=== PATIENT | female | born 1935 | race Hispanic/Latino ===

== ENCOUNTER 2017-03-15 15:21 | Inpatient (IN) | payer MEDICARE, OTHER ==
[2017-03-15] MEDS: Sodium Chloride 0.9% 1,000 ML IV SCH (17:15)
[2017-03-15 17:18] LABS: ADD MANUAL DIFF? NO
[2017-03-15 17:21] LABS: EOS % 0.5 % (1.5-5.0); GRAN # 2.22 (1.4-6.5); GRAN % 50.4 % (50.0-68.0); HEMATOCRIT 35.8 % (36.0-48.0); LYMPH # 1.5 (1.2-3.4); LYMPH % 33.6 % (22.0-35.0); MEAN CELL VOLUME 91.1 fL (80.0-105.0); MEAN CORPUSCULAR HEMOGLOBIN 30.5 pg (25.0-35.0); MEAN CORPUSCULAR HGB CONC 33.5 g/dl (31.0-37.0); MONO # 0.7 (0.1-0.6); MONO % 15.5 % (1.0-6.0); PLATELET COUNT 147 10^3/uL (120.0-450.0); RED CELL DISTRIBUTION WIDTH 13.1 % (11.5-14.5); WHITE BLOOD COUNT 4.4 10^3/ul (4.5-11.0)
[2017-03-15 17:31] LABS: ALKALINE PHOSPHATASE 93 U/L (38-133); ALT/SGPT 15 U/L (7-56); AST/SGOT 23 U/L (15-39); BILIRUBIN,TOTAL 0.8 mg/dL (0.2-1.3); BLOOD UREA NITROGEN 8 mg/dL (7-21); CALCIUM 9.8 mg/dL (8.4-10.5); CARBON DIOXIDE 38 mmol/L (21-33); CHLORIDE 90 mmol/L (98-107); GFR AFRICAN-AMERICAN > 60; GLUCOSE,RANDOM 101 mg/dL (70-110); MAGNESIUM 1.6 mg/dL (1.7-2.2); PHOSPHOROUS 2.9 mg/dL (2.5-4.5); TOTAL PROTEIN 7.7 g/dL (5.8-8.3)
[2017-03-15 17:33] LABS: SODIUM 138 mmol/L (132-148)
[2017-03-15 17:35] LABS: POTASSIUM 2.4 mmol/L (3.6-5.0)
--- NOTE | 2017-03-15 17:35 | ED PDOC ---
Arrival/HPI - General Chief Complaint: Altered Mental Status Time Seen by Provider: 03/15/17 15:46 Historian: Family - History of Present Illness Narrative History of Present Illness (Text): 03/15/17 15:35 A 81 year old female, whose past medical history includes Alzheimer, dementia impulse control disorder hypertension, hyperlipidemia, and COPD, was brought in by family and presents to the emergency department complaining of weakness. Patient's family reports that patient has not been eating and is progressively getting weaker and is unable to get up from bed. Patient's impulse control disorder symptoms have improved due to Haldol intake. Family would like consider placing patient in half-way. Denies of homicidal ideation, sn, and any other complaints. Symptom Onset: Gradual Activities at Onset: Rest, Light Context: Home Past Medical History - Provider Review Nursing Documentation Reviewed: Yes - Infectious Disease Hx of Infectious Diseases: None - Cardiac Hx Hypertension: Yes - Pulmonary Hx Respiratory Disorders: No - Neurological Hx Dementia: Yes - Hematological/Oncological Hx Blood Disorders: No - Integumentary Hx Dermatological Disorder: No - Musculoskeletal/Rheumatological Hx Falls: No - Gastrointestinal Hx Gastrointestinal Disorders: No - Genitourinary/Gynecological Hx Genitourinary Disorders: No - Psychiatric Hx Psychophysiologic Disorder: No Hx Substance Use: No - Surgical History Other/Comment: gallbladder, hysterectomy - Anesthesia Hx Anesthesia: No Hx Anesthesia Reactions: No Hx Malignant Hyperthermia: No Family/Social History - Physician Review Nursing Documentation Reviewed: Yes Family/Social History: No Known Family HX Smoking Status: Former Smoker Hx Alcohol Use: No Hx Substance Use: No Allergies/Home Meds Allergies/Adverse Reactions: Allergies No Known Allergies Allergy (Verified 03/15/17 15:44) Home Medications: Home Meds Medication Instructions Recorded Confirmed Atorvastatin [Lipitor] 10 mg PO DIN 10/14/16 03/15/17 Furosemide [Lasix] 20 mg PO DAILY 10/14/16 03/15/17 Memantine HCl [Namenda Xr] 14 mg PO DAILY 10/14/16 03/15/17 Rivastigmine 9.5 mg/24 hr [Exelon 1 ea TD DAILY 10/14/16 03/15/17 9.5 mg/24 hr Patch] Review of Systems - Physician Review All systems were reviewed & negative as marked: Yes - Review of Systems Constitutional: Other (weakness due to poor food intake) Psychiatric: absent: Suicidal Ideation, Other (homicidal ideation) Physical Exam Vital Signs Reviewed: Yes Vital Signs Temp Pulse Resp BP Pulse Ox 03/15/17 15:44 98.5 F 88 18 109/58 L 98 03/15/17 15:42 98.5 F 73 16 139/94 H 97 Temperature: Afebrile Blood Pressure: Normal Pulse: Regular Respiratory Rate: Normal Appearance: Positive for: Well-Appearing Pain Distress: None Mental Status: Positive for: Alert and Oriented X 3 - Systems Exam Head: Present: Atraumatic, Normocephalic Pupils: Present: PERRL Extroacular Muscles: Present: EOMI Conjunctiva: Present: Normal Mouth: Present: Moist Mucous Membranes Neck: Present: Normal Range of Motion Respiratory/Chest: Present: Clear to Auscultation, Good Air Exchange. No: Respiratory Distress, Accessory Muscle Use Cardiovascular: Present: Regular Rate and Rhythm, Normal S1, S2. No: Murmurs Abdomen: Present: Normal Bowel Sounds. No: Tenderness, Distention, Peritoneal Signs Back: Present: Normal Inspection Upper Extremity: Present: Normal Inspection. No: Cyanosis, Edema Lower Extremity: Present: Normal Inspection. No: Edema Neurological: Present: GCS=15, CN II-XII Intact, Speech Normal Skin: Present: Warm, Dry, Normal Color. No: Rashes Psychiatric: Present: Alert, Oriented x 3, Normal Insight, Normal Concentration Medical Decision Making ED Course and Treatment: 03/15/17 17:40 Impression: 81 year old female with weakness due to poor food intake. Normal physical exam. Differential Diagnosis included but are not limited to: Alzheimer vs. Dementia Plan: -- EKG -- Labs -- Mag-Ox -- K-Dur -- PO potassium -- IV fluids -- Urinalysis -- Reassess and disposition Prior Visits: Notes and results from previous visits were reviewed. Patient was last seen in the emergency department on 10/14/2016 reported agitated at home. Patient was admitted. Progress Notes: 03/15/2017 17:44 EKG: Ordered, reviewed, and independently interpreted the EKG. Rate : 77 BPM Rhythm : NSR Interpretation : PAC, U waves, no ST elevation. Comparison : No change in EKG since 10/14/2016. 03/15/2017 17:[address] Naranjo, covering for Dr. Brooks who will accept the patient. Potassium replaced with PO and IV potassium Magnesium replaced with PO Magnesium. Signed out to Propellant Charge Loader as well. 03/15/17 18:07 Repeat EKG: NSR at 66 bpm with Sinus arrythmia and U waves. No change from previous. - Critical Care Critical Care Minutes: 30 minutes Narrative Critical Care (Text): 03/15/17 17:49 Potassium level is 2.4 - Lab Interpretations Lab Results: 03/15/17 17:11 03/15/17 17:11 Lab Results 03/15/17 17:11: Sodium 138, Potassium 2.4 L* D, Chloride 90 L, Carbon Dioxide 38 H, Anion Gap 12, BUN 8, Creatinine 0.8, Est GFR ( Amer) > 60, Est GFR (Non-Af Amer) > 60, Random Glucose 101, Calcium 9.8, Phosphorus 2.9, Magnesium 1.6 L, Total Bilirubin 0.8, AST 23, ALT 15, Alkaline Phosphatase 93, Total Protein 7.7, Albumin 3.8, Globulin 3.9, Albumin/Globulin Ratio 1.0 L 03/15/17 17:11: PT 11.4, INR 1.06, APTT 27.5 03/15/17 17:11: WBC 4.4 L, RBC 3.93, Hgb 12.0, Hct 35.8 L, MCV 91.1, MCH 30.5, MCHC 33.5, RDW 13.1, Plt Count 147, MPV 12.0 H, Gran % 50.4, Lymph % (Auto) 33.6 , [place] % (Auto) 15.5 H, Eos % (Auto) 0.5 L, Baso % (Auto) 0.0, Gran # 2.22, Lymph # 1.5, [place] # 0.7 H, Eos # 0.0, Baso # 0.00 - RAD Interpretation Radiology Orders: 03/15/17 16:00 CHEST PORTABLE [RAD] Stat - Medication Orders Current Medication Orders: Sodium Chloride (Sodium Chloride 0.9%) 1,000 mls @ 100 mls/hr IV .Q10H EDDI Last Admin: 03/15/17 17:15 Dose: 100 mls/hr Potassium Chloride (Potassium Chloride 10 Meq/100 Ml) 10 meq in 100 mls @ 100 mls/hr IVPB ONCE ONE Stop: 03/15/17 18:39 Discontinued Medications Magnesium Oxide (Mag-Ox) 400 mg PO STAT STA Stop: 03/15/17 17:44 Potassium Chloride (K-Dur 20 Meq Er Tab) 40 meq PO STAT STA Stop: 03/15/17 17:41 - Scribe Statement Deena Mcmillan Provider Scribe Attestation: All medical record entries made by the Scribe were at my direction and personally dictated by me. I have reviewed the chart and agree that the record accurately reflects my personal performance of the history, physical exam, medical decision making, and the department course for this patient. I have also personally directed, reviewed, and agree with the discharge instructions and disposition. Disposition/Present on Arrival - Present on Arrival Any Indicators Present on Arrival: No History of DVT/PE: No History of Uncontrolled Diabetes: No Urinary Catheter: No History of Decub. Ulcer: No History Surgical Site Infection Following: None - Disposition Have Diagnosis and Disposition been Completed?: Yes Diagnosis: Hypokalemia, Alzheimer's dementia, Failure to thrive Disposition: HOSPITALIZED Disposition Time: 18:09 Patient Plan: Admission Condition: GUARDED Forms: [facility] [facility] (Hungarian)
--- NOTE | 2017-03-15 17:37 | RAD ---
HISTORY: failure to thrive COMPARISON: Chest x-ray performed 10/14/16 TECHNIQUE: Chest, one view. FINDINGS: LUNGS: Hyperinflation may be seen in the setting of COPD. Increased lucencies especially within the bilateral upper lung clark compatible with underlying emphysema. Biapical pleural thickening. No focal consolidation. Please note that chest x-ray has limited sensitivity for the detection of pulmonary masses. PLEURA: No significant pleural effusion identified. No definite pneumothorax . CARDIOVASCULAR: Heart size appears within normal limits. Atherosclerotic calcifications of the aorta. OSSEOUS STRUCTURES: Osseous demineralization. Degenerative changes. VISUALIZED UPPER ABDOMEN: Unremarkable. OTHER FINDINGS: None. IMPRESSION: Findings compatible with COPD/emphysema. Correlate clinically.
[2017-03-15] MEDS ORDERED: Potassium Chloride 20 mEq ER Tab PO STA (17:40)
[2017-03-15] MEDS ORDERED: Magnesium Oxide 400 mg Tab UD PO STA (17:43)
[2017-03-15 17:49] LABS: INR 1.06 (0.93-1.08); PARTIAL THROMBOPLASTIN TIME 27.5 Seconds (23.7-30.8)
[2017-03-15] MEDS ORDERED: Potassium Chloride 40 mEq/30 ml LIQ UD PO STA ×2 (18:15→18:40)
--- NOTE | 2017-03-15 20:18 | CARD ---
APPROVED REPORT EKG Measurement Heart [id number] <Conclusion> Sinus rhythm with premature atrial complexes with aberrant conduction Nonspecific ST abnormality Abnormal ECG
--- NOTE | 2017-03-15 20:49 | CP.PCM.HP ---
<Roger Tellez - Last Filed: 03/15/17 21:02> History of Present Illness - History of Present Illness History of Present Illness: Ms. Gutierrez is an 81 y/o F with a PMHx specifically significant for Dementia who presented to the ED with her daughter at bedside, who c/o progressively decreasing cognitive function over the past few days. Pt's daughter states that she has become increasingly less able to take care of herself and that the patient's and daughter must constantly help her with ADL's. As of late , the patient has become more confused and has been falling. Pt's daughter denies injuries from the falls, including head injury, but believes that patient needs inpatient evaluation for her declining condition. Patient herself denies any complaints, including headache, dizziness, loss of sensation , fevers, chills, chest pain, palpitations, sob, n/v/d/constipation, or any other complaints. PSurgHx: Hysterectomy, Cholecystectomy PMHx: Dementia, HTN, HLD All: NKDA SocHx: Smoked 3 ppd for 15-20 years, quit many years ago; denies etoh, illicits FHx: Could not elicit Meds: Namenda, Ativan, Duonebs, Exelon, Potassium, Lasix, Lipitor, Phenergan, Protonix Present on Admission - Present on Admission Any Indicators Present on Admission: No Review of Systems - Hematologic/Lymphatic Additional comments: ROS: Constitutional: pt denies fever, chills, generalized weakness ENT: pt denies dysphagia, otalgia, hearing deficit, rhinorrhea Eyes: pt denies sudden loss of vision, diplopia, blurred vision MSK: pt denies muscle stiffness, joint pain, extremity cramping Cardio: pt denies sob, heart murmur, cp Pulm: pt denies cough, hemoptysis, wheeze GI: pt denies loss of appetite, abdominal pain, constipation, melena, n/v/d : pt denies burning on urination, urinary frequency, hematuria, urinary urgency Neuro: pt denies paresis, paresthesia, dizziness, jones, numbness, tingling Derm: pt denies skin changes, lesions, nail changes Endo: pt denies intolerance to heat/cold, diaphoresis, night sweats, polydipsia Psych: +See HPI Past Patient History - Infectious Disease Hx of Infectious Diseases: None - Past Social History Smoking Status: Former Smoker - CARDIAC Hx Hypertension: Yes - PULMONARY Hx Respiratory Disorders: No - NEUROLOGICAL Hx Dementia: Yes - HEMATOLOGICAL/ONCOLOGICAL Hx Blood Disorders: No - INTEGUMENTARY Hx Dermatological Problems: No - MUSCULOSKELETAL/RHEUMATOLOGICAL Hx Falls: No - GASTROINTESTINAL Hx Gastrointestinal Disorders: No - GENITOURINARY/GYNECOLOGICAL Hx Genitourinary Disorders: No - PSYCHIATRIC Hx Psychophysiologic Disorder: No Hx Substance Use: No - SURGICAL HISTORY Other/Comment: gallbladder, hysterectomy - ANESTHESIA Hx Anesthesia: No Hx Anesthesia Reactions: No Hx Malignant Hyperthermia: No Meds Allergies/Adverse Reactions: Allergies Allergy/AdvReac Type Severity Reaction Status Date / Time No Known Allergies Allergy Verified 03/15/17 15:44 Physical Exam - Additional Findings Additional findings: Phys Exam: VS as below Constitutional: alert, oriented to person; nad Head and Neck: neck supple, no jvd, trachea midline, carotid midline, no cervical/head mass Eyes: aimee, nonicteric sclera, eom intact ENT: auditory acuity grossly intact, throat not congested, no nasal deformity Cardio: rrr, no m/r/g, no carotid bruit, nml s1, s2 Pulm: no accessory muscle use, equal nml breath sounds bilaterally, ctab Abd: s/nt/nd, nbs x 4 q, no palpable masses Derm: no rashes, no ulcers, no lesions Extr: no edema, no cyanosis, no calf tenderness, no lesions, no varicosities Neuro: +does not follow simple commands; is verbal but does not respond appropriately to questions; cn II-XII grossly intact, ue and le 5/5 muscle strength bilaterally, no los ue, le bilaterally and core. Results - Vital Signs Recent Vital Signs: Last Vital Signs Temp 98.5 F 03/15/17 15:44 Pulse 92 H 03/15/17 20:04 Resp 16 03/15/17 20:04 BP 156/81 H 03/15/17 19:43 Pulse Ox 99 03/15/17 20:04 - Labs Result Diagrams: 03/15/17 17:11 03/15/17 17:11 Assessment & Plan - Assessment and Plan (Free Text) Assessment: Assessment: Ms. Gutierrez is an 81 y/o F with a PMHx specifically significant for Dementia who presented to the ED with her daughter at bedside, who c/o progressively decreasing cognitive function over the past few days. Plan: 1.) Dementia - Social work on c/s - Continue home meds: Haldol, Memantine, Rivastigmine - Urine culture/UA: to r/o medical causes of deteriorating state 2.) Hypokalemia - Pt arrived with 2.4 K+ - P.O. and I.V. potassium given. Will continue to monitor Chemistry 3.) Hypomagnesemia - Pt arrived with 1.6 Mg+ - Mg Oxide given. Checking Mg/Phos next AM 4.) Hx/O HTN - Hold home Lasix 2/2 hypokalemia and low BP. - Give Hydralazine 5.) Hx/O HLD - Continue home Lipitor 6.) DVT/GI PPHXS - scd/protonix <Mykel Naranjo - Last Filed: 03/17/17 19:31> Results - Vital Signs Recent Vital Signs: Last Vital Signs Temp 98.9 F 03/17/17 18:00 Pulse 56 L 03/17/17 18:00 Resp 19 03/17/17 18:00 BP 134/62 03/17/17 18:00 Pulse Ox 94 L 03/17/17 18:00 - Labs Result Diagrams: 03/17/17 09:30 03/17/17 11:00 Labs: Laboratory Results - last 24 hr 03/17/17 03/17/17 09:30 11:00 WBC 3.6 L RBC 3.57 Hgb 10.7 L Hct 33.6 L MCV 94.1 MCH 30.0 MCHC 31.8 RDW 13.5 Plt Count 140 MPV 12.3 H Gran % 50.1 Lymph % (Auto) 37.7 H [place] % (Auto) 11.1 H Eos % (Auto) 1.1 L Baso % (Auto) 0.0 Gran # 1.81 Lymph # 1.4 [place] # 0.4 Eos # 0.0 Baso # 0.00 Sodium 141 Potassium 3.8 Chloride 108 H Carbon Dioxide 24 Anion Gap 13 BUN 5 L Creatinine 0.7 Est GFR ( Amer) > 60 Est GFR (Non-Af Amer) > 60 Random Glucose 95 Calcium 9.7 Phosphorus 2.7 Magnesium 1.6 L Total Bilirubin 0.6 AST 20 ALT 15 Alkaline Phosphatase 78 Total Protein 6.3 Albumin 3.0 Globulin 3.3 Albumin/Globulin Ratio 0.9 L Attending/Attestation - Attestation I have personally seen and examined this patient.: Yes I have fully participated in the care of the patient.: Yes I have reviewed all pertinent clinical information: Yes Notes (Text): 03/17/17 19:31 Medical record note made by the resident after discussion with my direction and input after the patient was personally seen and examined by me. I have reviewed the chart and agree that the record accurately reflects by personal performance of the history, physical exam, data review, and medical decision-making, in the course for the patient. I have also personally directed the plan of care.
[2017-03-15 20:59] VITALS: BMI 17.6
[2017-03-16] MEDS: Sodium Chloride 0.9% 1,000 ML IV SCH ×3 (03:14→23:15)
[2017-03-16] MEDS ORDERED: Potassium Chloride 40 mEq/30 ml LIQ UD PO STA (04:47)
[2017-03-16] MEDS ORDERED: Potassium Chloride 40 mEq/30 ml LIQ UD PO ONE (06:40)
[2017-03-16 07:22] LABS: ADD MANUAL DIFF? NO
[2017-03-16 07:30] LABS: EOS % 0.7 % (1.5-5.0); GRAN % 41.5 % (50.0-68.0); HEMATOCRIT 34.7 % (36.0-48.0); LYMPH # 1.8 (1.2-3.4); LYMPH % 43.2 % (22.0-35.0); MEAN CELL VOLUME 91.8 fL (80.0-105.0); MEAN CORPUSCULAR HEMOGLOBIN 30.2 pg (25.0-35.0); MEAN CORPUSCULAR HGB CONC 32.9 g/dl (31.0-37.0); MEAN PLATELET VOLUME 12.2 fl (7.0-11.0); MONO # 0.6 (0.1-0.6); MONO % 14.6 % (1.0-6.0); PLATELET COUNT 157 10^3/uL (120.0-450.0); RED CELL DISTRIBUTION WIDTH 13.2 % (11.5-14.5); WHITE BLOOD COUNT 4.1 10^3/ul (4.5-11.0)
[2017-03-16 08:06] LABS: ALB/GLOB RATIO 0.9 (1.1-1.8); ALKALINE PHOSPHATASE 70 U/L (38-133); ALT/SGPT 15 U/L (7-56); AST/SGOT 19 U/L (15-39); BILIRUBIN,TOTAL 0.7 mg/dL (0.2-1.3); BLOOD UREA NITROGEN 5 mg/dL (7-21); CALCIUM 9.2 mg/dL (8.4-10.5); CARBON DIOXIDE 31 mmol/L (21-33); CHLORIDE 101 mmol/L (98-107); GFR AFRICAN-AMERICAN > 60; GLUCOSE,RANDOM 90 mg/dL (70-110); MAGNESIUM 1.7 mg/dL (1.7-2.2); POTASSIUM 3.8 mmol/L (3.6-5.0); SODIUM 140 mmol/L (132-148); TOTAL PROTEIN 6.5 g/dL (5.8-8.3)
[2017-03-16] MEDS: MEMANTINE HCL 14 MG PO SCH (09:50)
[2017-03-16] MEDS: Potassium & Sodium Phosphate PO SCH ×2 (10:32→17:04)
--- NOTE | 2017-03-16 11:10 | CP.PCM.CON ---
<Kalya Cano - Last Filed: 03/16/17 13:15> History of Present Illness - History of Present Illness History of Present Illness: PGY-2 Neurology consult note for Dr Nuñez. Reason for consult: worsening dementia Patient is an 81 y/o with pmh of copd, dementia, htn, hld brought in by family 2nd to worsening in cognitive decline, inability to perform ADLS, frequent falling and worsening of confusion.On presentation, patient had electrolytes imbalance and O2 sat of 94% on room air. Patient is not sure why she's in the hospital. Patient's was at the bed side, and states patient was brought in because patient is frail and is not able to complete sentences. Unable to obtain 12 point ROS due to mental status. Review of Systems - Review of Systems Systems not reviewed;Unavailable: Altered Mental Status Past Patient History - Infectious Disease Hx of Infectious Diseases: None - Past Social History Smoking Status: Former Smoker Home Situation {Lives}: With Family - CARDIAC Hx Hypertension: Yes - PULMONARY Hx Respiratory Disorders: No - NEUROLOGICAL Hx Dementia: Yes - HEENT Hx HEENT Problems: No Hx Blind: No Hx Cataracts: No Hx Deafness: No Hx Difficulty Chewing: No Hx Epistaxis: No Hx Glaucoma: No Hx Macular Degeneration: No - RENAL Hx Chronic Kidney Disease: No Hx Dialysis: No Hx Kidney Stones: No Hx Neurogenic Bladder: No Hx Pyelonephritis: No Hx Renal (Kidney) Cancer: No Hx Renal Failure: No - ENDOCRINE/METABOLIC Hx Endocrine Disorders: No Hx Adrenal Cancer: No Hx Diabetes Insipidus: No Hx Diabetes Mellitus Type 1: No Hx Diabetes Mellitus Type 2: No Hx Hyperthyroidism: No Hx Hypothyroidism: No Hx Systemic Lupus Erythematosus: No - HEMATOLOGICAL/ONCOLOGICAL Hx Blood Disorders: No - INTEGUMENTARY Hx Dermatological Problems: No - MUSCULOSKELETAL/RHEUMATOLOGICAL Hx Falls: No - GASTROINTESTINAL Hx Gastrointestinal Disorders: No - GENITOURINARY/GYNECOLOGICAL Hx Genitourinary Disorders: No - PSYCHIATRIC Hx Psychophysiologic Disorder: No Hx Substance Use: No - SURGICAL HISTORY Other/Comment: gallbladder, hysterectomy - ANESTHESIA Hx Anesthesia: No Hx Anesthesia Reactions: No Hx Malignant Hyperthermia: No Meds Allergies/Adverse Reactions: Allergies Allergy/AdvReac Type Severity Reaction Status Date / Time No Known Allergies Allergy Verified 03/15/17 15:44 - Medications Medications: Current Medications Atorvastatin Calcium (Lipitor) 10 mg PO DIN EDDI Haloperidol (Haldol) 0.25 mg PO AMHS EDDI PRN Reason: Protocol Last Admin: 03/15/17 22:28 Dose: 0.25 mg Hydralazine HCl (Apresoline) 10 mg IVP Q6 PRN PRN Reason: Systolic Blood Pressure Sodium Chloride (Sodium Chloride 0.9%) 1,000 mls @ 100 mls/hr IV .Q10H [facility] Last Admin: 03/16/17 03:14 Dose: 100 mls/hr Non-Formulary Medication (Memantine Hcl [Namenda Xr]) 14 mg PO DAILY [facility] Pantoprazole Sodium (Protonix Inj) 40 mg IVP DAILY [facility] Last Admin: 03/16/17 09:50 Dose: 40 mg Potassium Phos/Sodium Phos (Neutra-Phos) 2 pkt PO BID [facility] Rivastigmine (Exelon 9.5 Mg/24 Hr Patch) 1 patch TD DAILY [facility] Last Admin: 03/16/17 09:49 Dose: 1 patch Physical Exam - Constitutional Appears: No Acute Distress, Confused, Cachectic, Chronically Ill - Head Exam Head Exam: ATRAUMATIC, NORMAL INSPECTION, NORMOCEPHALIC - Eye Exam Eye Exam: EOMI, Normal appearance, PERRL. absent: Scleral icterus Pupil Exam: NORMAL ACCOMODATION, PERRL - ENT Exam ENT Exam: Mucous Membranes Dry - Neck Exam Neck exam: Positive for: Full Rom, Normal Inspection - Respiratory Exam Respiratory Exam: Clear to Auscultation Bilateral, NORMAL BREATHING PATTERN. absent: Rales, Rhonchi, Wheezes, Respiratory Distress, Stridor - Cardiovascular Exam Cardiovascular Exam: REGULAR RHYTHM, +S1, +S2 - GI/Abdominal Exam GI & Abdominal Exam: Normal Bowel Sounds, Soft. absent: Distended, Tenderness - Extremities Exam Extremities exam: Positive for: normal inspection. Negative for: pedal edema - Neurological Exam Neurological exam: CN II-XII Intact Additional comments: Frail looking lady, in no acute distress Patient with wondering thoughts, unable to focus. Mini mental exam 30, patient unable to answer or do anything. Motor strength flexion and extension diminished diffusely with diffuse muscle atrophy. No focal neuralgic deficit noted. Patient is unable to follow commands for detailed neuro exam. Reflexes +2 through out, negative babinski. Sensation intact. Gait deferred. - Psychiatric Exam Psychiatric exam: Flat Affect - Skin Skin Exam: Normal Color Results - Vital Signs Recent Vital Signs: Last Vital Signs Temp 98 F 03/16/17 06:00 Pulse 68 03/16/17 06:00 Resp 20 03/16/17 06:00 BP 122/69 03/16/17 06:00 Pulse Ox 94 L 03/16/17 06:00 - Labs Result Diagrams: 03/16/17 07:00 03/16/17 07:00 Labs: Laboratory Results - last 24 hr 03/16/17 03/16/17 03/16/17 02:55 07:00 07:00 WBC 4.1 L RBC 3.78 Hgb 11.4 L Hct 34.7 L MCV 91.8 MCH 30.2 MCHC 32.9 RDW 13.2 Plt Count 157 MPV 12.2 H Gran % 41.5 L Lymph % (Auto) 43.2 H [place] % (Auto) 14.6 H Eos % (Auto) 0.7 L Baso % (Auto) 0.0 Gran # 1.70 Lymph # 1.8 [place] # 0.6 Eos # 0.0 Baso # 0.00 Sodium 140 Potassium 3.1 L 3.8 Chloride 101 Carbon Dioxide 31 Anion Gap 12 BUN 5 L Creatinine 0.7 Est GFR ( Amer) > 60 Est GFR (Non-Af Amer) > 60 Random Glucose 90 Calcium 9.2 Phosphorus 2.0 L Magnesium 1.7 Total Bilirubin 0.7 AST 19 ALT 15 Alkaline Phosphatase 70 Total Protein 6.5 Albumin 3.1 Globulin 3.4 Albumin/Globulin Ratio 0.9 L Assessment & Plan - Assessment and Plan (Free Text) Assessment: Patient is an 81 y/o with pmh of copd, dementia, htn, hld brought in by family 2nd to worsening in cognitive decline. CT head w/o contrast:Possible interval chronic lacunar left basal ganglia. Remaining examination is stable in the interval including diffuse cerebral atrophy chronic microangiopathy. Impression: dementia with behavioral disturbance. Plan: - Monitor and correct electrolytes - c/w memantine, haldol and rivastigmine - Consider seroquel 2.5 mg bid if haldol doesn't help with agitation. - Can consider MRI to evaluate the interval lacunar infarct - Avoid night time interruption - Avoid sedatives, and opioid - Consider home health aid to assist with ADLs and self care - Thank you for consulting Dr Nuñez. Patient seen, examined, and case discussed with Dr Nuñez. - Date & Time Date: 03/16/17 Time: 13:15 <David Nuñez - Last Filed: 03/16/17 14:03> Meds - Medications Medications: Current Medications Atorvastatin Calcium (Lipitor) 10 mg PO DIN EDDI Haloperidol (Haldol) 0.25 mg PO AMHS EDDI PRN Reason: Protocol Last Admin: 03/16/17 09:50 Dose: Not Given Hydralazine HCl (Apresoline) 10 mg IVP Q6 PRN PRN Reason: Systolic Blood Pressure Sodium Chloride (Sodium Chloride 0.9%) 1,000 mls @ 100 mls/hr IV .Q10H [facility] Last Admin: 03/16/17 13:15 Dose: 100 mls/hr Non-Formulary Medication (Memantine Hcl [Namenda Xr]) 14 mg PO DAILY [facility] Last Admin: 03/16/17 09:50 Dose: Not Given Pantoprazole Sodium (Protonix Inj) 40 mg IVP DAILY [facility] Last Admin: 03/16/17 09:50 Dose: 40 mg Potassium Phos/Sodium Phos (Neutra-Phos) 2 pkt PO BID [facility] Last Admin: 03/16/17 10:32 Dose: Not Given Rivastigmine (Exelon 9.5 Mg/24 Hr Patch) 1 patch TD DAILY [facility] Last Admin: 03/16/17 09:49 Dose: 1 patch Results - Vital Signs Recent Vital Signs: Last Vital Signs Temp 97.1 F L 03/16/17 11:32 Pulse 76 03/16/17 11:32 Resp 16 03/16/17 11:32 BP 155/67 H 03/16/17 11:32 Pulse Ox 94 L 03/16/17 06:00 - Labs Result Diagrams: 03/16/17 07:00 03/16/17 07:00 Labs: Laboratory Results - last 24 hr 03/16/17 03/16/17 03/16/17 02:55 07:00 07:00 WBC 4.1 L RBC 3.78 Hgb 11.4 L Hct 34.7 L MCV 91.8 MCH 30.2 MCHC 32.9 RDW 13.2 Plt Count 157 MPV 12.2 H Gran % 41.5 L Lymph % (Auto) 43.2 H [place] % (Auto) 14.6 H Eos % (Auto) 0.7 L Baso % (Auto) 0.0 Gran # 1.70 Lymph # 1.8 [place] # 0.6 Eos # 0.0 Baso # 0.00 Sodium 140 Potassium 3.1 L 3.8 Chloride 101 Carbon Dioxide 31 Anion Gap 12 BUN 5 L Creatinine 0.7 Est GFR ( Amer) > 60 Est GFR (Non-Af Amer) > 60 Random Glucose 90 Calcium 9.2 Phosphorus 2.0 L Magnesium 1.7 Total Bilirubin 0.7 AST 19 ALT 15 Alkaline Phosphatase 70 Total Protein 6.5 Albumin 3.1 Globulin 3.4 Albumin/Globulin Ratio 0.9 L TSH 3rd Generation 03/16/17 12:44 WBC RBC Hgb Hct MCV MCH MCHC RDW Plt Count MPV Gran % Lymph % (Auto) [place] % (Auto) Eos % (Auto) Baso % (Auto) Gran # Lymph # [place] # Eos # Baso # Sodium Potassium Chloride Carbon Dioxide Anion Gap BUN Creatinine Est GFR ( Amer) Est GFR (Non-Af Amer) Random Glucose Calcium Phosphorus Magnesium Total Bilirubin AST ALT Alkaline Phosphatase Total Protein Albumin Globulin Albumin/Globulin Ratio TSH 3rd Generation 1.69 Attending/Attestation - Attestation I have personally seen and examined this patient.: Yes I have fully participated in the care of the patient.: Yes I have reviewed all pertinent clinical information: Yes
--- NOTE | 2017-03-16 11:16 | CARD ---
APPROVED REPORT EKG Measurement Heart [id number] <Conclusion> Normal sinus rhythm with sinus arrhythmia ST abnormality, possible digitalis effect Abnormal ECG
--- NOTE | 2017-03-16 11:47 | CT ---
PROCEDURE: CT HEAD WITHOUT CONTRAST. HISTORY: Falls COMPARISON: Head CT without contrast 10/17/2016. TECHNIQUE: Axial computed tomography images were obtained through the head/brain without intravenous contrast. Radiation dose: Total exam DLP = 746 mGy-cm. This CT exam was performed using one or more of the following dose reduction techniques: Automated exposure control, adjustment of the mA and/or kV according to patient size, and/or use of iterative reconstruction technique. FINDINGS: HEMORRHAGE: No intracranial hemorrhage. BRAIN: Small chronic lacune is suspect in the left basal ganglia with stable diffuse cerebral atrophy and chronic microangiopathy again identified. No definite acute intracranial findings by standard CT criteria. VENTRICLES: Unremarkable. No hydrocephalus. CALVARIUM: Unremarkable. PARANASAL SINUSES: Unremarkable as visualized. No significant inflammatory changes. MASTOID AIR CELLS: Unremarkable as visualized. No inflammatory changes. OTHER FINDINGS: None. IMPRESSION: Possible interval chronic lacune left basal ganglia. Remaining examination is stable in the interval including diffuse cerebral atrophy chronic microangiopathy as discussed above. Yes
--- NOTE | 2017-03-16 17:08 | CP.PCM.PN ---
Addendum entered and electronically signed by Lazarus Grayson DO 03/22/17 15:53: Patient was seen and examined and case was discussed at length with Dr. Seth. Patient's dementia acutely worsening. Pending work up. Lazarus Grayson D.O. PGY-2 Original Note: <PETER SETH - Last Filed: 03/16/17 17:04> Subjective - Date & Time of Evaluation Date of Evaluation: 03/16/17 Time of Evaluation: 06:45 - Subjective Subjective: Peter Seth DO PGY1 - Internal Medicine Progress Note - [place]ous[place]/Adaniel Service Patient seen and examined at bedside. Patient was admitted overnight for acutely worsening dementia, frequent fall. Today, she appears comfortable, but is very confused, unable answer many simple questions or follow complex commands. She denies CP, SOB, abdominal pain, N/V/D/C. Objective - Vital Signs/Intake and Output Vital Signs (last 24 hours): Temp Pulse Resp BP Pulse Ox 97 F L 86 16 149/75 96 03/16/17 16:40 03/16/17 16:40 03/16/17 16:40 03/16/17 16:40 03/16/17 16:40 Intake and Output: 03/16/17 03/16/17 06:59 18:59 Intake Total 1540 0 Balance 1540 0 - Medications Medications: Current Medications Atorvastatin Calcium (Lipitor) 10 mg PO DIN [facility] Haloperidol (Haldol) 0.25 mg PO [facility]HS EDDI PRN Reason: Protocol Last Admin: 03/16/17 09:50 Dose: Not Given Hydralazine HCl (Apresoline) 10 mg IVP Q6 PRN PRN Reason: Systolic Blood Pressure Sodium Chloride (Sodium Chloride 0.9%) 1,000 mls @ 100 mls/hr IV .Q10H [facility] Last Admin: 03/16/17 13:15 Dose: 100 mls/hr Non-Formulary Medication (Memantine Hcl [Namenda Xr]) 14 mg PO DAILY [facility] Last Admin: 03/16/17 09:50 Dose: Not Given Pantoprazole Sodium (Protonix Inj) 40 mg IVP DAILY [facility] Last Admin: 03/16/17 09:50 Dose: 40 mg Potassium Phos/Sodium Phos (Neutra-Phos) 2 pkt PO BID [facility] Last Admin: 03/16/17 10:32 Dose: Not Given Rivastigmine (Exelon 9.5 Mg/24 Hr Patch) 1 patch TD DAILY [facility] Last Admin: 03/16/17 09:49 Dose: 1 patch - Labs Labs: 03/16/17 07:00 03/16/17 07:00 PT 11.4 Seconds (9.9-11.8) 03/15/17 17:11 INR 1.06 (0.93-1.08) 03/15/17 17:11 APTT 27.5 Seconds (23.7-30.8) 03/15/17 17:11 - Constitutional Appears: Non-toxic, No Acute Distress, Confused - Head Exam Head Exam: ATRAUMATIC, NORMOCEPHALIC - Eye Exam Eye Exam: EOMI, Normal appearance, PERRL - ENT Exam ENT Exam: Mucous Membranes Moist - Neck Exam Neck Exam: Normal Inspection - Respiratory Exam Respiratory Exam: Clear to Ausculation Bilateral. absent: Rales, Rhonchi, Wheezes - Cardiovascular Exam Cardiovascular Exam: RRR, +S1, +S2 - GI/Abdominal Exam GI & Abdominal Exam: Soft, Normal Bowel Sounds. absent: Tenderness - Extremities Exam Extremities Exam: Normal Inspection. absent: Calf Tenderness, Pedal Edema - Neurological Exam Neurological Exam: Alert, Awake Neuro motor strength exam: Left Upper Extremity: 5, Right Upper Extremity: 5, Left Lower Extremity: 5, Right Lower Extremity: 5 Additional comments: Oriented x1, but would not say her last name, or name the city, state, or country she is in. Later, came in to the room again, she was tearful. - Psychiatric Exam Psychiatric exam: Flat Affect - Skin Skin Exam: Dry, Intact Assessment and Plan - Assessment and Plan (Free Text) Assessment: 81 y/o F with a PMHx of Dementia, HTN, HLD, COPD who presented to the ED with her daughter who was c/o progressively decreasing cognitive function over the past few days, decreased strength and appetite, and decreasing ability to conduct her ADLs. Plan: 1. Dementia - History of Alzheimer dementia with impulse control disorder, but acutely worsening. Daughter admits to falls, but denies any head trauma - Ordered head CT to r/o acute intracranial pathology, which showed possible chronic interval lacunar infarct in R basal ganglia - Order brain MRI to elucidate details of lacunar infarct - Order TSH, blood culture, and FTA-ABS to rule out other causes of worsening dementia - Continue home meds: Haldol, Memantine, Rivastigmine - Straight cath UA and urine culture pending - Consult neurology ([place]) - [facility] ([place]) - Social work consulted for group home placement 2. Hypokalemia - improved - Pt arrived with potassium 2.4, repleted with PO and IV, now 3.8 - Continue to monitor, recheck CMP in AM 3. Hypomagnesemia - Improved - Pt arrived with magnesium 1.6, repleted, now 1.7 - Continue to monitor 4. Hypophosphatemia - Today, phosphate is 2.0, down from 2.9 yesterday - Replete with Nutraphos 5. Hx/O HTN - Hold home Lasix 2/2 hypokalemia and low BP. - Give Hydralazine PRN 6. Hx/O HLD - Continue home Lipitor DVT/GI PPx - scd/protonix <Lazarus Grayson - Last Filed: 03/22/17 15:54> <Abimael Brooks - Last Filed: 04/27/17 11:34> Objective - Vital Signs/Intake and Output Vital Signs (last 24 hours): Temp Pulse Resp BP Pulse Ox 98.7 F 78 20 143/70 97 03/22/17 16:50 03/22/17 16:50 03/22/17 16:50 03/22/17 16:50 03/22/17 06:00 - Labs Labs: 03/22/17 10:35 03/22/17 11:00 PT 11.4 Seconds (9.9-11.8) 03/15/17 17:11 INR 1.06 (0.93-1.08) 03/15/17 17:11 APTT 27.5 Seconds (23.7-30.8) 03/15/17 17:11 Attending/Attestation - Attestation I have personally seen and examined this patient.: Yes I have fully participated in the care of the patient.: Yes I have reviewed all pertinent clinical information, including history, physical exam and plan: Yes Notes (Text): 04/27/17 11:34 Medical record note made by the resident after discussion with my direction and input after the patient was personally seen by me. I have reviewed the chart and agree that the record accurately reflects my personal performance of the history, physical, decision making, and plan for the patient.
--- NOTE | 2017-03-16 17:46 | CP.PCM.PCO ---
Physician Communication Note - Physician Communication Note Physician Communication Note: alzhimer dementia with behavorial disturbance.
[2017-03-17] MEDS: Sodium Chloride 0.9% 1,000 ML IV SCH ×2 (09:10→19:00)
[2017-03-17] MEDS: Potassium & Sodium Phosphate PO SCH ×2 (09:12→17:34)
[2017-03-17] MEDS: MEMANTINE HCL 14 MG PO SCH (09:16)
[2017-03-17 10:12] LABS: ADD MANUAL DIFF? NO
[2017-03-17 10:18] LABS: EOS % 1.1 % (1.5-5.0); GRAN # 1.81 (1.4-6.5); GRAN % 50.1 % (50.0-68.0); HEMATOCRIT 33.6 % (36.0-48.0); LYMPH # 1.4 (1.2-3.4); LYMPH % 37.7 % (22.0-35.0); MEAN CELL VOLUME 94.1 fL (80.0-105.0); MEAN CORPUSCULAR HGB CONC 31.8 g/dl (31.0-37.0); MEAN PLATELET VOLUME 12.3 fl (7.0-11.0); MONO # 0.4 (0.1-0.6); MONO % 11.1 % (1.0-6.0); PLATELET COUNT 140 10^3/uL (120.0-450.0); RED CELL DISTRIBUTION WIDTH 13.5 % (11.5-14.5); WHITE BLOOD COUNT 3.6 10^3/ul (4.5-11.0)
--- NOTE | 2017-03-17 11:05 | MRI ---
PROCEDURE: MRI BRAIN WITHOUT CONTRAST HISTORY: Interval change on head CT, ?basal ganglia lacune COMPARISON: Comparison made with plain film CT scan brain dated 03/16/2017 TECHNIQUE: Multiplanar, multisequence MR images of the brain were obtained without intravenous contrast enhancement. Note the examination is limited due to motion artifact. FINDINGS: HEMORRHAGE: No acute parenchymal, subarachnoid or extra-axial hemorrhage. No evidence of hemosiderin deposition identified on gradient echo weighted sequence DWI: No evidence of an acute or early subacute infarction seen on diffusion imaging. . BRAIN PARENCHYMA: Seen to better advantage are moderate to significant diffuse/confluent chronic white matter ischemic changes extending peripherally into the deep and subcortical white matter both cerebral hemispheres. There appears to be more discrete chronic subcortical infarct in the left frontal region as well. . Moderate to significant generalized volume loss. VENTRICLES: No obstructive hydrocephalus. CRANIUM: No obvious calvarial abnormalities are identified ORBITS: Changes of bilateral cataract surgery again noted PARANASAL SINUSES/MASTOIDS: Clear VASCULAR SYSTEM: Visualized major vascular flow voids at skull base are patent. 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 OTHER FINDINGS: None. IMPRESSION: Limited motion degraded study. No evidence of acute intracranial hemorrhage or infarct. 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 Moderate to significant generalized volume loss
[2017-03-17 11:25] LABS: ALB/GLOB RATIO 0.9 (1.1-1.8); ALKALINE PHOSPHATASE 78 U/L (38-133); ALT/SGPT 15 U/L (7-56); AST/SGOT 20 U/L (15-39); BILIRUBIN,TOTAL 0.6 mg/dL (0.2-1.3); BLOOD UREA NITROGEN 5 mg/dL (7-21); CALCIUM 9.7 mg/dL (8.4-10.5); CARBON DIOXIDE 24 mmol/L (21-33); CHLORIDE 108 mmol/L (98-107); GFR AFRICAN-AMERICAN > 60; GLUCOSE,RANDOM 95 mg/dL (70-110); MAGNESIUM 1.6 mg/dL (1.7-2.2); PHOSPHOROUS 2.7 mg/dL (2.5-4.5); POTASSIUM 3.8 mmol/L (3.6-5.0); SODIUM 141 mmol/L (132-148); TOTAL PROTEIN 6.3 g/dL (5.8-8.3)
--- NOTE | 2017-03-18 05:24 | CON ---
HISTORY OF PRESENT ILLNESS: The patient is an 81-year-old female with a history of advanced dementia. The patient was brought in to the hospital secondary to worsening of cognitive abilities and inability to perform ADLs. The patient also was more confused, forgetful, and dementia was getting worse. Psych consult was called for evaluation of behavioral disturbances and confusion. This signwriter was familiar with this patient from the previous consultation services on the medical side. This signwriter attempted to speak to the patient, but the patient was deeply sleeping, was not able to wake the patient up. Collaterals were obtained from the nursing staff. As per nursing staff report, the patient has episodes of confusion, restless behavior, majority of the time this was at about 2 p.m, 4 p.m. Besides that, there is no aggression or agitation, but confusion, restless behavior. This signwriter reviewed the vital signs. Vital signs seems to be stable. Temperature is 97.5, pulse is 59, blood pressure 117/56, respirations 18, and oxygen saturation 96. PAST PSYCHIATRIC HISTORY: This signwriter had evaluated the patient in 09/2016. The patient had advanced dementia. In the past, the patient was on haloperidol 0.25 mg twice a day, which was initiated by *------*since patient was improving on that medication. LABS: Reviewed. MENTAL STATUS EXAMINATION: This signwriter was not able to evaluate her mental status because the patient was deeply sleeping. IMPRESSION: The patient has advanced dementia with behavioral disturbances, multiple medical issues. Please see medical team's note for more details and information. The patient also was seen by neurology team*------* Dr. Nuñez. Patient also has some electrolyte imbalance. Patient had MRI. PLAN: Continue current management. This signwriter increased her dose of haloperidol to 0.25 mg 3 times a day. Collaterals were obtained from the nursing staff. We will follow up and advise accordingly. Thank you very much for letting me to participate in care of your patient. Moraima Barker MD
[2017-03-18] MEDS: Sodium Chloride 0.9% 1,000 ML IV SCH ×2 (05:42→16:02)
--- NOTE | 2017-03-18 07:06 | CP.PCM.PN ---
Subjective - Date & Time of Evaluation Date of Evaluation: 03/17/17 Time of Evaluation: 06:45 - Subjective Subjective: Peter Seth DO PGY1 - Internal Medicine Progress Note - Cecilia/Marcella Service Patient seen and examined at bedside. No acute events reported overnight. Today , she appears comfortable, but she remains very confused, unable answer many simple questions or follow complex commands. Had swallow eval yesterday, on regular diet now. She denies CP, SOB, abdominal pain, N/V/D/C, but ROS is limited by her mental status. Objective - Vital Signs/Intake and Output Vital Signs (last 24 hours): Temp Pulse Resp BP Pulse Ox 98.7 F 60 20 126/71 98 03/18/17 06:00 03/18/17 06:00 03/18/17 06:00 03/18/17 06:00 03/18/17 06:00 Intake and Output: 03/18/17 03/18/17 06:59 18:59 Intake Total 1440 Output Total 0 Balance 1440 - Medications Medications: Current Medications Atorvastatin Calcium (Lipitor) 10 mg PO DIN [facility] Last Admin: 03/17/17 17:34 Dose: 10 mg Haloperidol (Haldol) 0.25 mg PO [facility] PRN Reason: Protocol Last Admin: 03/17/17 21:49 Dose: 0.25 mg Haloperidol (Haldol) 0.25 mg PO 1600 [facility] PRN Reason: Protocol Hydralazine HCl (Apresoline) 10 mg IVP Q6 PRN PRN Reason: Systolic Blood Pressure Sodium Chloride (Sodium Chloride 0.9%) 1,000 mls @ 100 mls/hr IV .Q10H [facility] Last Admin: 03/18/17 05:42 Dose: 100 mls/hr Non-Formulary Medication (Memantine Hcl [Namenda Xr]) 14 mg PO DAILY [facility] Last Admin: 03/17/17 09:16 Dose: Not Given Pantoprazole Sodium (Protonix Inj) 40 mg IVP DAILY [facility] Last Admin: 03/17/17 09:12 Dose: 40 mg Potassium Phos/Sodium Phos (Neutra-Phos) 2 pkt PO BID [facility] Last Admin: 03/17/17 17:34 Dose: 2 pkt Rivastigmine (Exelon 9.5 Mg/24 Hr Patch) 1 patch TD DAILY [facility] Last Admin: 03/17/17 09:13 Dose: 1 patch - Labs Labs: 03/17/17 09:30 03/17/17 11:00 PT 11.4 Seconds (9.9-11.8) 03/15/17 17:11 INR 1.06 (0.93-1.08) 03/15/17 17:11 APTT 27.5 Seconds (23.7-30.8) 03/15/17 17:11 - Constitutional Appears: Non-toxic, No Acute Distress, Confused - Head Exam Head Exam: ATRAUMATIC, NORMOCEPHALIC - Eye Exam Eye Exam: EOMI, Normal appearance, PERRL - ENT Exam ENT Exam: Mucous Membranes Moist - Neck Exam Neck Exam: Normal Inspection - Respiratory Exam Respiratory Exam: Clear to Ausculation Bilateral. absent: Rales, Rhonchi, Wheezes - Cardiovascular Exam Cardiovascular Exam: RRR, +S1, +S2 - GI/Abdominal Exam GI & Abdominal Exam: Soft, Normal Bowel Sounds. absent: Tenderness - Extremities Exam Extremities Exam: Normal Inspection. absent: Calf Tenderness, Pedal Edema - Back Exam Back Exam: NORMAL INSPECTION - Neurological Exam Neurological Exam: Alert, Awake Additional comments: Oriented x1, hesitates when giving her last name. Has difficulty following simple commands, often cannot identify common objects (pen, glasses, etc). - Psychiatric Exam Psychiatric exam: Flat Affect, Normal Mood - Skin Skin Exam: Dry, Intact Assessment and Plan - Assessment and Plan (Free Text) Assessment: 81 y/o F with a PMHx of Dementia, HTN, HLD, COPD who presented to the ED with her daughter who was c/o progressively decreasing cognitive function over the past few days, decreased strength and appetite, and decreasing ability to conduct her ADLs. Plan: 1. Dementia - History of Alzheimer dementia with impulse control disorder, but acutely worsening. Daughter admits to falls, but denies any head trauma - Head CT reviewed; significant for possible chronic interval lacunar infarct in R basal ganglia - Brain MRI significant for "moderate to significant chronic white matter ischemic changes with more discrete chronic left frontal lobe subcortical infarct" and "moderate to significant generalized volume loss" but the exam was limited due to motion artifact. - TSH normal. Blood culture, and FTA-ABS pending - Continue home meds: Haldol, Memantine, Rivastigmine - Straight cath UA and urine culture pending - Consult neurology ([place]), all recs appreciated - [facility] ([place]), all recs appreciated - Social work consulted for care home placement 2. Hypokalemia - improved - Pt arrived with potassium 2.4, repleted with PO and IV, stable at 3.8 - Continue to monitor, recheck CMP in AM 3. Hypomagnesemia - Pt arrived with magnesium 1.6, repleted yesterday, improved to 1.7, but decreased again to 1.7 - Continue to monitor 4. Hypophosphatemia - improved - Today, phosphate is 2.7, up from 2.0 yesterday - Hold Nutraphos, recheck in AM 5. Hx/O HTN - Hold home Lasix 2/2 hypokalemia and low BP. - Give Hydralazine PRN 6. Hx/O HLD - Continue home Lipitor DVT/GI PPx - scd/protonix Patient seen and reviewed with attending Dr. Naranjo
[2017-03-18] MEDS ORDERED: Magnesium Sulfate 2 GM in Sodium Chloride 0.9% 100 ML IVPB ONE (07:11)
[2017-03-18 07:49] LABS: ADD MANUAL DIFF? NO
[2017-03-18 07:58] LABS: EOS % 0.5 % (1.5-5.0); GRAN # 2.01 (1.4-6.5); GRAN % 47.2 % (50.0-68.0); HEMATOCRIT 33.1 % (36.0-48.0); LYMPH # 1.7 (1.2-3.4); LYMPH % 39.2 % (22.0-35.0); MEAN CORPUSCULAR HEMOGLOBIN 30.3 pg (25.0-35.0); MEAN CORPUSCULAR HGB CONC 32.6 g/dl (31.0-37.0); MEAN PLATELET VOLUME 11.8 fl (7.0-11.0); MONO # 0.6 (0.1-0.6); MONO % 13.1 % (1.0-6.0); PLATELET COUNT 123 10^3/uL (120.0-450.0); RED CELL DISTRIBUTION WIDTH 13.4 % (11.5-14.5); WHITE BLOOD COUNT 4.3 10^3/ul (4.5-11.0)
[2017-03-18 08:13] LABS: ALKALINE PHOSPHATASE 70 U/L (38-133); ALT/SGPT 15 U/L (7-56); AST/SGOT 19 U/L (15-39); BILIRUBIN,TOTAL 0.6 mg/dL (0.2-1.3); BLOOD UREA NITROGEN 6 mg/dL (7-21); CALCIUM 9.2 mg/dL (8.4-10.5); CARBON DIOXIDE 25 mmol/L (21-33); CHLORIDE 107 mmol/L (98-107); GFR AFRICAN-AMERICAN > 60; GLUCOSE,RANDOM 88 mg/dL (70-110); MAGNESIUM 1.6 mg/dL (1.7-2.2); PHOSPHOROUS 2.7 mg/dL (2.5-4.5); POTASSIUM 3.7 mmol/L (3.6-5.0); SODIUM 142 mmol/L (132-148)
[2017-03-18] MEDS: MEMANTINE HCL 14 MG PO SCH (10:53)
--- NOTE | 2017-03-18 13:49 | CP.PCM.PN ---
<PETER SETH - Last Filed: 03/18/17 13:46> Subjective - Date & Time of Evaluation Date of Evaluation: 03/18/17 Time of Evaluation: 06:45 - Subjective Subjective: Peter Seth DO PGY1 - Internal Medicine Progress Note - Cecilia/Marcella Service Patient seen and examined at bedside. No acute events reported overnight. Today , she has no particular complaints, and appears comfortable, but she remains very confused, unable answer many simple questions or follow complex commands. She denies CP, SOB, abdominal pain, N/V/D/C, but ROS is limited by her mental status. Objective - Vital Signs/Intake and Output Vital Signs (last 24 hours): Temp Pulse Resp BP Pulse Ox 98.4 F 59 L 18 127/70 97 03/18/17 12:20 03/18/17 12:20 03/18/17 12:20 03/18/17 12:20 03/18/17 09:00 Intake and Output: 03/18/17 03/18/17 06:59 18:59 Intake Total 1440 Output Total 0 Balance 1440 - Medications Medications: Current Medications Atorvastatin Calcium (Lipitor) 10 mg PO DIN [facility] Last Admin: 03/17/17 17:34 Dose: 10 mg Haloperidol (Haldol) 0.25 mg PO [facility] PRN Reason: Protocol Last Admin: 03/18/17 10:57 Dose: 0.25 mg Haloperidol (Haldol) 0.25 mg PO 1600 [facility] PRN Reason: Protocol Hydralazine HCl (Apresoline) 10 mg IVP Q6 PRN PRN Reason: Systolic Blood Pressure Sodium Chloride (Sodium Chloride 0.9%) 1,000 mls @ 100 mls/hr IV .Q10H [facility] Last Admin: 03/18/17 05:42 Dose: 100 mls/hr Non-Formulary Medication (Memantine Hcl [Namenda Xr]) 14 mg PO DAILY [facility] Last Admin: 03/18/17 10:53 Dose: Not Given Pantoprazole Sodium (Protonix Inj) 40 mg IVP DAILY [facility] Last Admin: 03/18/17 10:57 Dose: 40 mg Potassium Phos/Sodium Phos (Neutra-Phos) 2 pkt PO BID [facility] Last Admin: 03/17/17 17:34 Dose: 2 pkt Rivastigmine (Exelon 9.5 Mg/24 Hr Patch) 1 patch TD DAILY [facility] Last Admin: 03/18/17 10:59 Dose: 1 patch - Labs Labs: 03/18/17 07:48 03/18/17 07:48 PT 11.4 Seconds (9.9-11.8) 03/15/17 17:11 INR 1.06 (0.93-1.08) 03/15/17 17:11 APTT 27.5 Seconds (23.7-30.8) 03/15/17 17:11 - Constitutional Appears: Non-toxic, No Acute Distress, Confused - Eye Exam Eye Exam: EOMI, Normal appearance, PERRL - ENT Exam ENT Exam: Mucous Membranes Moist - Neck Exam Neck Exam: Normal Inspection. absent: Lymphadenopathy, Meningismus, Thyromegaly - Respiratory Exam Respiratory Exam: Clear to Ausculation Bilateral. absent: Rales, Rhonchi, Wheezes - Cardiovascular Exam Cardiovascular Exam: RRR, +S1, +S2 - GI/Abdominal Exam GI & Abdominal Exam: Soft, Normal Bowel Sounds. absent: Tenderness - Extremities Exam Extremities Exam: absent: Calf Tenderness, Pedal Edema - Back Exam Back Exam: NORMAL INSPECTION Additional comments: No rash, sacral decubiti, skin breakdown. Patient is incontinent and is wearing a diaper. Has mild erythema on buttocks, cream/talc over the area. - Neurological Exam Neurological Exam: Alert, Awake Additional comments: Oriented x1, much more conversational that in prior exams. Hesitates when giving her last name. Has difficulty following simple commands, often cannot identify common objects (pen, glasses, etc). - Psychiatric Exam Psychiatric exam: Flat Affect, Normal Mood Assessment and Plan - Assessment and Plan (Free Text) Assessment: 81 y/o F with a PMHx of Dementia, HTN, HLD, COPD who presented to the ED with her daughter who was c/o progressively decreasing cognitive function over the past few days, decreased strength and appetite, and decreasing ability to conduct her ADLs. Plan: 1. Dementia - History of Alzheimer dementia with impulse control disorder, but acutely worsening. Daughter admits to falls, but denies any head trauma - Head CT reviewed; Brain MRI reviewed. - TSH normal. FTA-ABS pending - Blood culture no growth after 48 hrs - Continue home meds: Haldol, increased to TID, Memantine, Rivastigmine - Straight cath done yesterday, urine culture pending. UA not processed, will require a new sample because lab disposed of yesterday's sample. - Consult neurology ([place]), all recs appreciated - [facility] ([place]), all recs appreciated - Thorough exam of the back and skin shows no skin breakdown or ulceration; r/o possible sources of infection causing worsening dementia - Social work consulted for prison placement 2. Hypokalemia - resolved - Pt arrived with potassium 2.4, repleted, now stable - Continue to monitor, recheck CMP in AM 3. Hypomagnesemia - Pt arrived with magnesium 1.6, repleted but dropped again. - Replete with 2mg MgSO4 - Continue to monitor 4. Hypophosphatemia - resolved - Today, phosphate is 2.7, stable 5. Hx/O HTN - Hold home Lasix 2/2 hypokalemia and low BP. - Give Hydralazine PRN 6. Hx/O HLD - Continue home Lipitor DVT/GI PPx - scd/protonix Patient seen and reviewed with attending Dr. Wade <Hugh Wade - Last Filed: 03/18/17 16:07> Objective - Vital Signs/Intake and Output Vital Signs (last 24 hours): Temp Pulse Resp BP Pulse Ox 98.4 F 77 18 127/70 97 03/18/17 12:20 03/18/17 14:00 03/18/17 12:20 03/18/17 12:20 03/18/17 09:00 Intake and Output: 03/18/17 03/18/17 06:59 18:59 Intake Total 1440 Output Total 0 Balance 1440 - Medications Medications: Current Medications Atorvastatin Calcium (Lipitor) 10 mg PO DIN [facility] Last Admin: 03/17/17 17:34 Dose: 10 mg Haloperidol (Haldol) 0.25 mg PO [facility] PRN Reason: Protocol Last Admin: 03/18/17 10:57 Dose: 0.25 mg Haloperidol (Haldol) 0.25 mg PO 1600 [facility] PRN Reason: Protocol Last Admin: 03/18/17 16:04 Dose: Not Given Hydralazine HCl (Apresoline) 10 mg IVP Q6 PRN PRN Reason: Systolic Blood Pressure Sodium Chloride (Sodium Chloride 0.9%) 1,000 mls @ 100 mls/hr IV .Q10H [facility] Last Admin: 03/18/17 16:02 Dose: 100 mls/hr Non-Formulary Medication (Memantine Hcl [Namenda Xr]) 14 mg PO DAILY [facility] Last Admin: 03/18/17 10:53 Dose: Not Given Pantoprazole Sodium (Protonix Inj) 40 mg IVP DAILY [facility] Last Admin: 03/18/17 10:57 Dose: 40 mg Potassium Phos/Sodium Phos (Neutra-Phos) 2 pkt PO BID [facility] Last Admin: 03/17/17 17:34 Dose: 2 pkt Rivastigmine (Exelon 9.5 Mg/24 Hr Patch) 1 patch TD DAILY [facility] Last Admin: 03/18/17 10:59 Dose: 1 patch - Labs Labs: 03/18/17 07:48 03/18/17 07:48 PT 11.4 Seconds (9.9-11.8) 03/15/17 17:11 INR 1.06 (0.93-1.08) 03/15/17 17:11 APTT 27.5 Seconds (23.7-30.8) 03/15/17 17:11 Assessment and Plan - Assessment and Plan (Free Text) Plan: went over labs meds orders discussed w/ and resident labs orders consults reviewed recheck labs may need placement
--- NOTE | 2017-03-18 22:35 | CON ---
HISTORY OF PRESENT ILLNESS: The patient is an 81-year-old female with a history of advanced dementia whose psychiatry is following due to worsening disorientation, confusion and inability to perform ADLs. I reviewed Dr. Barker's consultation, I met the patient at the bedside. The patient is calm and cooperative during my follow up with her today and she reports that her mood is "so so." Regarding depression, the patient reports "not really" and reports that she is hopeful. The patient denies being in any pain currently and she indicates that she slept well. She does not appear to be actively hallucinating; however, this provider cannot rule out to have the presence of delusions. She is not oriented to location, month or year. At times, while she can respond to questioning relevantly as long as the responses are brief. If any of her responses are quiet elaboration, she starts to ramble and becomes disorganized. I reviewed the nursing notes which indicated the patient only oriented to herself and not appear to be in any acute issues with her behavior at this time. The patient also does not appear to be paranoid and indicate that she feels comfortable and safe presently. The patient was generally friendly and accepting of my attempt to reorient her to current situation, month, year and location. Her insight and judgment continuous to be poor nonetheless. PHYSICAL EXAMINATION VITAL SIGNS: Temperature 98.7, pulse 60, blood pressure 126/71 and respirations 20. LABORATORY DATA: Not reviewed by this provider. CURRENT PSYCHIATRIC MEDICATIONS: Include, Haldol 0.25 mg p.o. q.i.d. IMPRESSION: The patient has advanced dementia with behavioral disturbance, rule out delirium would be the acute change in presentation regarding her cognitive ability. PLAN: We will continue current management. Follow with the patient every other day to check on her mental status and behavior. If there are any acute changes in the patient's mental status please feel free to call and request in earlier follow up and we will be happy to reevaluate her. Delmar Bliss MD
[2017-03-19] MEDS: Sodium Chloride 0.9% 1,000 ML IV SCH ×2 (02:39→10:42)
[2017-03-19 07:14] LABS: ADD MANUAL DIFF? NO
[2017-03-19 07:19] LABS: EOS # 0.1 (0.0-0.7); EOS % 1.3 % (1.5-5.0); GRAN # 2.63 (1.4-6.5); GRAN % 55.2 % (50.0-68.0); HEMATOCRIT 32.5 % (36.0-48.0); LYMPH # 1.5 (1.2-3.4); LYMPH % 31.1 % (22.0-35.0); MEAN CELL VOLUME 91.5 fL (80.0-105.0); MEAN CORPUSCULAR HEMOGLOBIN 29.6 pg (25.0-35.0); MEAN CORPUSCULAR HGB CONC 32.3 g/dl (31.0-37.0); MONO # 0.6 (0.1-0.6); MONO % 12.4 % (1.0-6.0); PLATELET COUNT 129 10^3/uL (120.0-450.0); RED CELL DISTRIBUTION WIDTH 13.3 % (11.5-14.5); WHITE BLOOD COUNT 4.8 10^3/ul (4.5-11.0)
[2017-03-19 07:37] LABS: ALB/GLOB RATIO 0.9 (1.1-1.8); ALKALINE PHOSPHATASE 71 U/L (38-133); ALT/SGPT 21 U/L (7-56); AST/SGOT 19 U/L (15-39); BILIRUBIN,TOTAL 0.4 mg/dL (0.2-1.3); BLOOD UREA NITROGEN 4 mg/dL (7-21); CALCIUM 8.7 mg/dL (8.4-10.5); CARBON DIOXIDE 25 mmol/L (21-33); CHLORIDE 106 mmol/L (95-110); GFR AFRICAN-AMERICAN > 60; GLUCOSE,RANDOM 91 mg/dL (70-110); SODIUM 139 mmol/L (132-148); TOTAL PROTEIN 5.7 g/dL (5.8-8.3)
[2017-03-19 07:52] LABS: POTASSIUM 2.7 mmol/L (3.6-5.0)
[2017-03-19] MEDS ORDERED: Potassium Chloride 40 mEq/30 ml LIQ UD PO STA ×2 (08:09→13:52)
--- NOTE | 2017-03-19 09:55 | CP.PCM.PN ---
Subjective - Date & Time of Evaluation Date of Evaluation: 03/19/17 Time of Evaluation: 09:45 - Subjective Subjective: Patient seen and examined at bedside. No acute events reported overnight. Today , no complaints, and appears comfortable. Still confused, unable answer many simple questions. ROS is limited by her mental status. Objective - Vital Signs/Intake and Output Vital Signs (last 24 hours): Temp Pulse Resp BP Pulse Ox 98.5 F 69 20 163/74 H 95 03/19/17 06:00 03/19/17 06:00 03/19/17 06:00 03/19/17 06:00 03/19/17 06:00 Intake and Output: 03/19/17 03/19/17 06:59 18:59 Intake Total 1600 Balance 1600 - Medications Medications: Current Medications Atorvastatin Calcium (Lipitor) 10 mg PO DIN [facility] Last Admin: 03/18/17 16:50 Dose: 10 mg Haloperidol (Haldol) 0.25 mg PO [facility] EDDI PRN Reason: Protocol Last Admin: 03/18/17 21:51 Dose: 0.25 mg Haloperidol (Haldol) 0.25 mg PO 1600 EDDI PRN Reason: Protocol Last Admin: 03/18/17 16:04 Dose: Not Given Hydralazine HCl (Apresoline) 10 mg IVP Q6 PRN PRN Reason: Systolic Blood Pressure Potassium Chloride (Potassium Chloride 20 Meq/100 Ml) 20 meq in 100 mls @ 50 mls/hr IVPB Q2H EDDI Stop: 03/19/17 12:14 Sodium Chloride (Sodium Chloride 0.9%) 1,000 mls @ 60 mls/hr IV .[id number] [facility] Non-Formulary Medication (Memantine Hcl [Namenda Xr]) 14 mg PO DAILY [facility] Last Admin: 03/18/17 10:53 Dose: Not Given Pantoprazole Sodium (Protonix Inj) 40 mg IVP DAILY [facility] Last Admin: 03/18/17 10:57 Dose: 40 mg Rivastigmine (Exelon 9.5 Mg/24 Hr Patch) 1 patch TD DAILY [facility] Last Admin: 03/18/17 10:59 Dose: 1 patch - Labs Labs: 03/19/17 07:11 03/19/17 07:11 PT 11.4 Seconds (9.9-11.8) 03/15/17 17:11 INR 1.06 (0.93-1.08) 03/15/17 17:11 APTT 27.5 Seconds (23.7-30.8) 03/15/17 17:11 - Constitutional Appears: No Acute Distress - Head Exam Head Exam: ATRAUMATIC, NORMAL INSPECTION, NORMOCEPHALIC - Eye Exam Eye Exam: EOMI, Normal appearance, PERRL Pupil Exam: NORMAL ACCOMODATION, PERRL - ENT Exam ENT Exam: Mucous Membranes Moist, Normal Exam - Neck Exam Neck Exam: Full ROM, Normal Inspection. absent: Lymphadenopathy - Respiratory Exam Respiratory Exam: Clear to Ausculation Bilateral, NORMAL BREATHING PATTERN. absent: Wheezes - Cardiovascular Exam Cardiovascular Exam: REGULAR RHYTHM, RRR, +S1, +S2. absent: Murmur - GI/Abdominal Exam GI & Abdominal Exam: Distended, Soft, Normal Bowel Sounds. absent: Tenderness - Extremities Exam Extremities Exam: Full ROM, Normal Capillary Refill, Normal Inspection. absent : Joint Swelling, Pedal Edema - Back Exam Back Exam: NORMAL INSPECTION - Neurological Exam Neurological Exam: Alert, Awake, CN II-XII Intact, Normal Gait, Oriented x3 - Psychiatric Exam Psychiatric exam: Normal Affect, Normal Mood - Skin Skin Exam: Dry, Intact, Normal Color, Warm Assessment and Plan - Assessment and Plan (Free Text) Assessment: 81 y/o F with a PMHx of Dementia, HTN, HLD, COPD who presented to the ED with her daughter who was c/o progressively decreasing cognitive function over the past few days, decreased strength and appetite, and decreasing ability to conduct her ADLs. 1. Dementia - History of Alzheimer dementia with impulse control disorder, but acutely worsening - Head CT reviewed; Brain MRI reviewed - some chronic age related change - no acute intracranial abnormality - TSH normal. FTA-ABS pending - Blood culture no growth after 48 hrs - Continue home meds: Haldol TID, Memantine, Rivastigmine - Straight cath done yesterday, urine culture pending. UA not processed, will require a new sample because lab disposed of yesterday's sample. - Consult neurology ([place]), all recs appreciated - [facility] - appreciate recs - Social work consulted for [facility] placement 2. Hypokalemia - this AM wa 2.7 - KCL 40meq po stat and 2 x 20meq IVPG - Continue to monitor, recheck CMP in AM 3. Hypomagnesemia - Pt arrived with magnesium 1.8 - Continue to monitor 4. Hypophosphatemia - resolved - stable 5. Hx/O HTN - Hold home Lasix 2/2 hypokalemia and low BP. - Give Hydralazine PRN 6. Hx/O HLD - Continue home Lipitor 7. DVT/GI PPx - scd/protonix Case and plan was reviewed and discussed in detail with Dr Wade.
[2017-03-19] MEDS: MEMANTINE HCL 14 MG PO SCH (10:41)
--- NOTE | 2017-03-19 13:16 | PN ---
DATE: SUBJECTIVE: She is resting comfortably in bed, alert and pleasantly confused. She is eating her breakfast. No acute complaints of chest pain or shortness of breath. No abdominal pain. She is happy. PHYSICAL EXAMINATION: VITAL SIGNS: 98.5 temp, 69 pulse, 163/74 blood pressure, 20 respiratory rate and 95% O2 saturation on room air. HEENT: Head atraumatic, normocephalic. HEART: Regular rate. LUNGS: Decreased breath sounds, but clear to auscultation. ABDOMEN: Soft. EXTREMITIES: No edema. LABORATORY DATA: She has a 139 sodium. Potassium is quite low at 2.7, she is getting . BUN is 4, creatinine 0.7, GFR is greater than 60, sugar is 91, calcium is 8.7, total bilirubin is 0.4, AST is 19, ALT is 21, alkaline phosphatase is 71 and total protein is 5.7. White count is 4.8, hemoglobin 10.5, hematocrit 32.5 and platelets are 129. INR is 1.06. MEDICATIONS: She is currently on Apresoline, Exelon, Haldol, Lipitor, Namenda, potassium replacement, Protonix and IV fluids at 100, I may decrease that to 60. ASSESSMENT AND PLAN: She is being seen by Psychiatry. She did have a brain MRI. She also has been seen by Neurology which shows limited motion study. No evidence of acute intracranial hemorrhage infarct, moderate to significant chronic white matter ischemic changes, chronic left frontal lobe subcortical infarct, [id number] generalized volume loss. Chronic infarct. We will replace potassium, check it tomorrow. Continue with aggressive treatment and care and she is probably going to go for placement. Hugh Wade DO [place]
[2017-03-20] MEDS: Sodium Chloride 0.9% 1,000 ML IV SCH ×2 (04:37→21:39)
[2017-03-20 06:08] LABS: MEAN CELL VOLUME 91.4 fL (80.0-105.0); MEAN CORPUSCULAR HEMOGLOBIN 30.2 pg (25.0-35.0); RED CELL DISTRIBUTION WIDTH 13.5 % (11.5-14.5); WHITE BLOOD COUNT 5.2 10^3/ul (4.5-11.0)
[2017-03-20 06:34] VITALS: O2SAT 97
[2017-03-20 07:37] LABS: ALB/GLOB RATIO 0.9 (1.1-1.8); ALKALINE PHOSPHATASE 73 U/L (38-133); ALT/SGPT 14 U/L (7-56); AST/SGOT 20 U/L (15-39); BILIRUBIN,TOTAL 0.5 mg/dL (0.2-1.3); BLOOD UREA NITROGEN 3 mg/dL (7-21); CALCIUM 9.3 mg/dL (8.4-10.5); CARBON DIOXIDE 24 mmol/L (21-33); CHLORIDE 109 mmol/L (98-107); GFR AFRICAN-AMERICAN > 60; GLUCOSE,RANDOM 86 mg/dL (70-110); SODIUM 140 mmol/L (132-148)
[2017-03-20] MEDS: MEMANTINE HCL 14 MG PO SCH (09:29)
--- NOTE | 2017-03-20 16:31 | CP.PCM.PCO ---
Physician Communication Note - Physician Communication Note Physician Communication Note: no acute issues, will f/u tomorrow
--- NOTE | 2017-03-20 19:04 | CP.PCM.PN ---
Subjective - Date & Time of Evaluation Date of Evaluation: 03/20/17 Time of Evaluation: 07:45 - Subjective Subjective: Pt s/e bedside; no acute events overnight. Per , pt may potentially have admission between two different [facility] tomorrow, provided she can stay off of the Haldol. Haldol was d/c'd at 9A today, 03/20/17 - patient is doing well off of it per nursing. HPI limited 2/2 patient's mental status. Objective - Vital Signs/Intake and Output Vital Signs (last 24 hours): Temp Pulse Resp BP Pulse Ox 98.3 F 69 18 149/77 97 03/20/17 17:43 03/20/17 17:43 03/20/17 17:43 03/20/17 17:43 03/20/17 06:00 Intake and Output: 03/20/17 03/20/17 06:59 18:59 Intake Total 960 480 Output Total 1650 700 Balance -690 -220 - Medications Medications: Current Medications Atorvastatin Calcium (Lipitor) 10 mg PO DIN [facility] Last Admin: 03/20/17 17:57 Dose: 10 mg Hydralazine HCl (Apresoline) 10 mg IVP Q6 PRN PRN Reason: Systolic Blood Pressure Sodium Chloride (Sodium Chloride 0.9%) 1,000 mls @ 60 mls/hr IV .[id number] [facility] Last Admin: 03/20/17 04:37 Dose: 60 mls/hr Non-Formulary Medication (Memantine Hcl [Namenda Xr]) 14 mg PO DAILY [facility] Last Admin: 03/20/17 09:29 Dose: Not Given Pantoprazole Sodium (Protonix Inj) 40 mg IVP DAILY [facility] Last Admin: 03/20/17 09:27 Dose: 40 mg Rivastigmine (Exelon 9.5 Mg/24 Hr Patch) 1 patch TD DAILY [facility] Last Admin: 03/20/17 11:59 Dose: 1 patch - Labs Labs: 03/20/17 05:15 03/20/17 05:30 PT 11.4 Seconds (9.9-11.8) 03/15/17 17:11 INR 1.06 (0.93-1.08) 03/15/17 17:11 APTT 27.5 Seconds (23.7-30.8) 03/15/17 17:11 - Additional Findings Additional findings: Phys Exam: VS as below Constitutional: a&o x 0, nad Head and Neck: neck supple, no jvd, trachea midline, carotid midline, no cervical/head mass Eyes: aimee, nonicteric sclera, eom intact ENT: auditory acuity grossly intact, throat not congested, no nasal deformity Cardio: rrr, no m/r/g, no carotid bruit, nml s1, s2 Pulm: no accessory muscle use, equal nml breath sounds bilaterally, ctab Abd: s/nt/nd, nbs x 4 q, no palpable masses Derm: no rashes, no ulcers, no lesions Extr: no edema, no cyanosis, no calf tenderness, no lesions, no varicosities Neuro: cn II-XII grossly intact, ue and le 5/5 muscle strength bilaterally, no los ue, le bilaterally and core Assessment and Plan - Assessment and Plan (Free Text) Assessment: 81 y/o F with a PMHx of Dementia, HTN, HLD, COPD who presented to the ED with her daughter who was c/o progressively decreasing cognitive function over the past few days, decreased strength and appetite, and decreasing ability to conduct her ADLs. 1. Dementia History: - History of Alzheimer dementia with impulse control disorder, but acutely worsening - Head CT reviewed; Brain MRI reviewed - some chronic age related change - no acute intracranial abnormality - TSH normal. - Blood culture no growth after 48 hrs Current: - Continue home meds: Memantine, Rivastigmine - Straight cath done yesterday, urine culture pending. UA not processed - FTA-ABS pending - Neuro C/S: Maintain proper sleep schedule. - Psych C/S: Per Dr. Vlaera, pt doing fine. - SW C/S: keep patient off Haldol for placement 2. Hypokalemia - resolved 3. Hypomagnesemia - Pt arrived with magnesium 1.8 - Continue to monitor 4. Hypophosphatemia - resolved 5. Hx/O HTN - Hold home Lasix 2/2 hypokalemia and low BP. - Give Hydralazine PRN 6. Hx/O HLD - Continue home Lipitor 7. DVT/GI PPx - scd/protonix Case and plan was reviewed and discussed in detail with Dr Wade.
[2017-03-21 07:23] LABS: ADD MANUAL DIFF? NO
[2017-03-21 07:25] LABS: EOS # 0.1 (0.0-0.7); EOS % 0.8 % (1.5-5.0); GRAN % 57.1 % (50.0-68.0); HEMATOCRIT 35.9 % (36.0-48.0); LYMPH # 1.9 (1.2-3.4); LYMPH % 29.1 % (22.0-35.0); MEAN CELL VOLUME 91.8 fL (80.0-105.0); MEAN CORPUSCULAR HEMOGLOBIN 30.2 pg (25.0-35.0); MEAN CORPUSCULAR HGB CONC 32.9 g/dl (31.0-37.0); MEAN PLATELET VOLUME 11.6 fl (7.0-11.0); MONO # 0.8 (0.1-0.6); PLATELET COUNT 149 10^3/uL (120.0-450.0); RED CELL DISTRIBUTION WIDTH 13.7 % (11.5-14.5); WHITE BLOOD COUNT 6.5 10^3/ul (4.5-11.0)
[2017-03-21 07:45] LABS: ALKALINE PHOSPHATASE 78 U/L (38-133); ALT/SGPT 18 U/L (7-56); AST/SGOT 29 U/L (15-39); BILIRUBIN,TOTAL 0.5 mg/dL (0.2-1.3); BLOOD UREA NITROGEN 5 mg/dL (7-21); CARBON DIOXIDE 25 mmol/L (21-33); CHLORIDE 107 mmol/L (95-110); GFR AFRICAN-AMERICAN > 60; GLUCOSE,RANDOM 85 mg/dL (70-110); POTASSIUM 3.4 mmol/L (3.6-5.0); SODIUM 141 mmol/L (132-148); TOTAL PROTEIN 6.3 g/dL (5.8-8.3)
[2017-03-21 07:52] LABS: CALCIUM 9.7 mg/dL (8.4-10.5)
[2017-03-21] MEDS ORDERED: Potassium Chloride 20 mEq ER Tab PO STA (08:49)
[2017-03-21] MEDS: MEMANTINE HCL 14 MG PO SCH (10:06)
--- NOTE | 2017-03-21 13:19 | PN ---
SUBJECTIVE: The patient was followed up today. The patient has a long history of Alzheimer's dementia, which getting worse recently. Psych consult was involved because the patient has episodes of confusion and restless behavior. This senior medical writer evaluated the patient last week. The patient was followed up today. The patient was admitted on Haldol 0.25 mg twice a day and this senior medical writer increased the dose last Monday. Medical team concerned subacute rehab and care home will not accept the patient on any haloperidol and asked this medication to be changed. Medical team stopped haloperidol today. This senior medical writer could suggest small dose of Seroquel at the nighttime. The patient was seen today. The patient presented to be confused; does not know where she is. The patient seem to be a confabulating know what is the date today, what is the hospital name. The patient does not even know that she is in the hospital. The patient was also saying that she smokes earlier but as per report the patient did not smoke. The patient has confusion, but there is no agitation, no aggression and there is no restless behavior. PHYSICAL EXAMINATION: VITAL SIGNS: This senior medical writer reviewed vital signs. Vital signs seems to be stable, but mild elevated blood pressure of 134/99. MEDICATIONS: Reviewed. The patient is on Lipitor, hydralazine, Protonix, Exelon as well as sodium chloride. Haldol was discontinued. Seroquel will be started to a minimum dose 12.5 mg at the nighttime. MENTAL STATUS EXAMINATION: As this senior medical writer described above, the patient appears to be confused, was observed eating independently, intermittent eye contact. Speech was incoherent. The patient has just words swallowed. Mood, "I am fine, I smoked earlier." Affect was full range, but mood incongruent. Thought process confabulation. Thought content, the patient was not able to comprehend question about . Inside and judgement are impaired significantly because the patient has long history of Alzheimer's dementia, which is getting worse. Impulses are better controlled. IMPRESSION: Alzheimer's dementia with behavioral disturbances. Please see medical team notes for more details and information about medical issues. PLAN: Haloperidol was discontinued. Seroquel 12.5 mg at the nighttime was started. Continue current medication. Continue current management. The patient is doing much better, no behavioral issues. The patient can be discharged to the care home facility or subacute rehab. This senior medical writer will sign off. Recommend to be followed up with psychiatrist in the care home or in subacute rehab within 1 week. Should you have any questions, give me a call back. This senior medical writer will sign off. Thank you very much for letting me to participate in the care of your patient. Moraima Barker MD
[2017-03-21] MEDS: Sodium Chloride 0.9% 1,000 ML IV SCH (19:54)
--- NOTE | 2017-03-21 22:12 | CP.PCM.PN ---
<GeoffRoger - Last Filed: 03/21/17 22:09> Subjective - Date & Time of Evaluation Date of Evaluation: 03/21/17 Time of Evaluation: 10:00 - Subjective Subjective: Pt s/e bedside; no acute events overnight. Per SW, pt was doing well off of her Haldol, and was accepted to [facility], but patient spiked a temperature of 100.3. We will monitor the patient overnight to see if symptoms emerge or if temp worsens. Objective - Vital Signs/Intake and Output Vital Signs (last 24 hours): Temp Pulse Resp BP Pulse Ox 100.3 F H 73 18 134/99 H 97 03/21/17 16:40 03/21/17 14:00 03/21/17 11:47 03/21/17 11:47 03/21/17 05:45 Intake and Output: 03/21/17 03/22/17 18:59 06:59 Intake Total 360 Output Total 700 Balance -340 - Medications Medications: Current Medications Acetaminophen (Tylenol 325mg Tab) 650 mg PO Q8H PRN PRN Reason: Fever >100.4 F Last Admin: 03/21/17 17:56 Dose: 650 mg Atorvastatin Calcium (Lipitor) 10 mg PO DIN [facility] Last Admin: 03/21/17 17:56 Dose: 10 mg Hydralazine HCl (Apresoline) 10 mg IVP Q6 PRN PRN Reason: Systolic Blood Pressure Non-Formulary Medication (Memantine Hcl [Namenda Xr]) 14 mg PO DAILY [facility] Last Admin: 03/21/17 10:06 Dose: Not Given Pantoprazole Sodium (Protonix Inj) 40 mg IVP DAILY [facility] Last Admin: 03/21/17 10:05 Dose: 40 mg Quetiapine Fumarate (Seroquel) 12.5 mg PO HS EDDI PRN Reason: Protocol Last Admin: 03/21/17 22:03 Dose: 12.5 mg Rivastigmine (Exelon 9.5 Mg/24 Hr Patch) 1 patch TD DAILY [facility] Last Admin: 03/21/17 10:17 Dose: 1 patch - Labs Labs: 03/21/17 07:00 03/21/17 07:00 PT 11.4 Seconds (9.9-11.8) 03/15/17 17:11 INR 1.06 (0.93-1.08) 03/15/17 17:11 APTT 27.5 Seconds (23.7-30.8) 03/15/17 17:11 - Additional Findings Additional findings: Phys Exam: VS as below Constitutional: a&o x 0, nad Head and Neck: neck supple, no jvd, trachea midline, carotid midline, no cervical/head mass Eyes: aimee, nonicteric sclera, eom intact ENT: auditory acuity grossly intact, throat not congested, no nasal deformity Cardio: rrr, no m/r/g, no carotid bruit, nml s1, s2 Pulm: no accessory muscle use, equal nml breath sounds bilaterally, ctab Abd: s/nt/nd, nbs x 4 q, no palpable masses Derm: no rashes, no ulcers, no lesions Extr: no edema, no cyanosis, no calf tenderness, no lesions, no varicosities Neuro: cn II-XII grossly intact, ue and le 5/5 muscle strength bilaterally, no los ue, le bilaterally and core Assessment and Plan - Assessment and Plan (Free Text) Assessment: 81 y/o F with a PMHx of Dementia, HTN, HLD, COPD who presented to the ED with her daughter who was c/o progressively decreasing cognitive function over the past few days, decreased strength and appetite, and decreasing ability to conduct her ADLs. Plan: 1. Dementia History: - History of Alzheimer dementia with impulse control disorder, but acutely worsening - Head CT reviewed; Brain MRI reviewed - some chronic age related change - no acute intracranial abnormality - TSH normal. - Blood culture no growth after 48 hrs Current: - Continue home meds: Memantine, Rivastigmine - Straight cath done yesterday, urine culture pending. UA not processed - FTA-ABS pending - Neuro C/S: Maintain proper sleep schedule. - Psych C/S: Per Dr. Valera, pt doing fine. - SW C/S: keep patient off Haldol for placement 2. Elevated temperature - Temperature went to 100.3 today. Will monitor overnight. 3. Hypokalemia - resolved 4. Hypomagnesemia - Pt arrived with magnesium 1.8 - Continue to monitor 5. Hypophosphatemia - resolved 6. Hx/O HTN - Hold home Lasix 2/2 hypokalemia and low BP. - Give Hydralazine PRN 7. Hx/O HLD - Continue home Lipitor 8. DVT/GI PPx - scd/protonix Case and plan was reviewed and discussed in detail with Dr Wade <Abimael Brooks - Last Filed: 03/30/17 09:16> Objective - Vital Signs/Intake and Output Vital Signs (last 24 hours): Temp Pulse Resp BP Pulse Ox 98.7 F 78 20 143/70 97 03/22/17 16:50 03/22/17 16:50 03/22/17 16:50 03/22/17 16:50 03/22/17 06:00 - Labs Labs: 03/22/17 10:35 03/22/17 11:00 PT 11.4 Seconds (9.9-11.8) 03/15/17 17:11 INR 1.06 (0.93-1.08) 03/15/17 17:11 APTT 27.5 Seconds (23.7-30.8) 03/15/17 17:11 Attending/Attestation - Attestation I have personally seen and examined this patient.: Yes I have fully participated in the care of the patient.: Yes I have reviewed all pertinent clinical information, including history, physical exam and plan: Yes Notes (Text): 03/30/17 09:16 Medical record note made by the resident done after discussion with my direction and input after the patient was personally seen by me. I have reviewed the chart and agree that the record accurately reflects my personal history, physical, data review, decision making and course for the patient.
[2017-03-22 06:14] VITALS: RESP 20
[2017-03-22 10:36] LABS: ADD MANUAL DIFF? NO
[2017-03-22 10:40] LABS: EOS # 0.1 (0.0-0.7); EOS % 1.1 % (1.5-5.0); GRAN # 2.82 (1.4-6.5); GRAN % 44.2 % (50.0-68.0); HEMATOCRIT 34.1 % (36.0-48.0); LYMPH # 2.1 (1.2-3.4); LYMPH % 32.3 % (22.0-35.0); MEAN CELL VOLUME 93.7 fL (80.0-105.0); MEAN CORPUSCULAR HEMOGLOBIN 29.9 pg (25.0-35.0); MEAN PLATELET VOLUME 12.1 fl (7.0-11.0); MONO # 1.4 (0.1-0.6); MONO % 22.4 % (1.0-6.0); PLATELET COUNT 133 10^3/uL (120.0-450.0); RED CELL DISTRIBUTION WIDTH 13.8 % (11.5-14.5); WHITE BLOOD COUNT 6.4 10^3/ul (4.5-11.0)
[2017-03-22] MEDS: MEMANTINE HCL 14 MG PO SCH (10:57)
[2017-03-22 11:40] LABS: ALKALINE PHOSPHATASE 74 U/L (38-133); ALT/SGPT 20 U/L (7-56); AST/SGOT 18 U/L (15-39); BILIRUBIN,TOTAL 0.6 mg/dL (0.2-1.3); BLOOD UREA NITROGEN 8 mg/dL (7-21); CARBON DIOXIDE 26 mmol/L (21-33); CHLORIDE 106 mmol/L (95-110); GFR AFRICAN-AMERICAN > 60; GLUCOSE,RANDOM 85 mg/dL (70-110); POTASSIUM 3.7 mmol/L (3.6-5.0); SODIUM 139 mmol/L (132-148); TOTAL PROTEIN 6.2 g/dL (5.8-8.3)
[2017-03-22 16:51] VITALS: BP 143/70; PULSE 78; TEMP 98.7
--- NOTE | 2017-03-22 17:20 | CP.PCM.DIS ---
Provider - Provider Date of Admission: 03/16/17 16:01 Attending physician: Abimael Brooks MD Time Spent in preparation of Discharge (in minutes): 45 Hospital Course - Lab Results Lab Results: Micro Results 03/18/17 09:18 Urine,Catheterized Urine Culture - Final No Growth (<1,000 CFU/ML) Most Recent Lab Values WBC 6.4 10^3/ul (4.5-11.0) 03/22/17 10:35 RBC 3.64 10^6/uL (3.5-6.1) 03/22/17 10:35 Hgb 10.9 gm/dL (12.0-16.0) L 03/22/17 10:35 Hct 34.1 % (36.0-48.0) L 03/22/17 10:35 MCV 93.7 fL (80.0-105.0) 03/22/17 10:35 MCH 29.9 pg (25.0-35.0) 03/22/17 10:35 MCHC 32.0 g/dl (31.0-37.0) 03/22/17 10:35 RDW 13.8 % (11.5-14.5) 03/22/17 10:35 Plt Count 133 10^3/uL (120.0-450.0) 03/22/17 10:35 MPV 12.1 fl (7.0-11.0) H 03/22/17 10:35 Gran % 44.2 % (50.0-68.0) L 03/22/17 10:35 Lymph % (Auto) 32.3 % (22.0-35.0) 03/22/17 10:35 [place] % (Auto) 22.4 % (1.0-6.0) H 03/22/17 10:35 Eos % (Auto) 1.1 % (1.5-5.0) L 03/22/17 10:35 Baso % (Auto) 0.0 % (0.0-3.0) 03/22/17 10:35 Gran # 2.82 (1.4-6.5) 03/22/17 10:35 Lymph # 2.1 (1.2-3.4) 03/22/17 10:35 [place] # 1.4 (0.1-0.6) H 03/22/17 10:35 Eos # 0.1 (0.0-0.7) 03/22/17 10:35 Baso # 0.00 K/mm3 (0.0-2.0) 03/22/17 10:35 PT 11.4 Seconds (9.9-11.8) 03/15/17 17:11 INR 1.06 (0.93-1.08) 03/15/17 17:11 APTT 27.5 Seconds (23.7-30.8) 03/15/17 17:11 Sodium 139 mmol/L (132-148) 03/22/17 11:00 Potassium 3.7 mmol/L (3.6-5.0) 03/22/17 11:00 Chloride 106 mmol/L (95-110) 03/22/17 11:00 Carbon Dioxide 26 mmol/L (21-33) 03/22/17 11:00 Anion Gap 11 (10-20) 03/22/17 11:00 BUN 8 mg/dL (7-21) 03/22/17 11:00 Creatinine 0.8 mg/dL (0.5-1.4) 03/22/17 11:00 Est GFR ( Amer) > 60 03/22/17 11:00 Est GFR (Non-Af Amer) > 60 03/22/17 11:00 Random Glucose 85 mg/dL (70-110) 03/22/17 11:00 Calcium 10.0 mg/dL (8.4-10.5) 03/22/17 11:00 Phosphorus 2.7 mg/dL (2.5-4.5) 03/18/17 07:48 Magnesium 1.8 mg/dL (1.7-2.2) 03/19/17 08:50 Total Bilirubin 0.6 mg/dL (0.2-1.3) 03/22/17 11:00 AST 18 U/L (15-39) 03/22/17 11:00 ALT 20 U/L (7-56) 03/22/17 11:00 Alkaline Phosphatase 74 U/L (38-133) 03/22/17 11:00 Total Protein 6.2 g/dL (5.8-8.3) 03/22/17 11:00 Albumin 3.1 g/dL (3.0-4.8) 03/22/17 11:00 Globulin 3.1 gm/dL 03/22/17 11:00 Albumin/Globulin Ratio 1.0 (1.1-1.8) L 03/22/17 11:00 TSH 3rd Generation 1.69 mIU/mL (0.46-4.68) 03/16/17 12:44 T.pallidum Ab (FTA-ABS) Nonreactive (Nonreactive) 03/16/17 12:44 - Hospital Course Hospital Course: Ms. Gutierrez is an 81 y/o F with a PMHx specifically significant for Dementia who presented to the ED with her daughter at bedside, who c/o progressively decreasing cognitive function over the past few days. Pt's daughter stated that she had become increasingly less able to take care of herself and that the patient's and daughter must constantly help her with ADL's. As of late , the patient had become more confused and had been falling. Pt's daughter denied injuries from the falls, including head injury, but believed that patient needed inpatient evaluation for her declining condition. Patient herself denied any complaints, including headache, dizziness, loss of sensation , fevers, chills, chest pain, palpitations, sob, n/v/d/constipation, or any other complaints. The patient was kept in patient and was seen by consultants from the psychiatry and neurology department. Patient was advised to adhere to her medication regimen and exercise better sleep hygiene as well as improve her circadian rhythm. Through the course of her stay, she did become mildly agitated and was given Haldol. This was d/c'd on the morning of 03/20/17. Patient did well off of the Haldol over the next couple of days. Placement was found for [facility], and I spoke directly with her daughter on 03/22/2017, who approved of her placement. Discharge Exam - Head Exam Head Exam: ATRAUMATIC, NORMAL INSPECTION, NORMOCEPHALIC - Additional Findings Additional findings: Phys Exam: VS as below Constitutional: a&o x 0, nad Head and Neck: neck supple, no jvd, trachea midline, carotid midline, no cervical/head mass Eyes: aimee, nonicteric sclera, eom intact ENT: auditory acuity grossly intact, throat not congested, no nasal deformity Cardio: rrr, no m/r/g, no carotid bruit, nml s1, s2 Pulm: no accessory muscle use, equal nml breath sounds bilaterally, ctab Abd: s/nt/nd, nbs x 4 q, no palpable masses Derm: no rashes, no ulcers, no lesions Extr: no edema, no cyanosis, no calf tenderness, no lesions, no varicosities Neuro: cn II-XII grossly intact, ue and le 5/5 muscle strength bilaterally, no los ue, le bilaterally and core Discharge Plan - Follow Up Plan Condition: GUARDED Disposition: REHAB FACILITY/REHAB UNIT Instructions: Alzheimer Disease (GEN), Heart Healthy Diet (GEN), Hypokalemia ( DC), Dementia (GEN), Emphysema (DC), COPD (Chronic Obstructive Pulmonary Disease ) (DC), Failure to Thrive in an Older Adult (DC), Level 3 National Dysphagia Diet (GEN), Hypokalemia (GEN) Additional Instructions: 1. Please comply with [facility] 2. If any new symptoms or old symptoms occur, please report back to emergency room 3. Please take medications as prescribed Please adhere to and consume dietary requirements with regards to specific diet : Modified Dysphagia Diet, advanced bite size with thin liquids. Please ask for assistance to reduce the risks of falls if and when attempting to get up/ ambulation.
== END 2017-03-22 18:30 | DRG 57 ==
LOC: ED 15:21 → ERH 17:43 → 2RSO 20:18 → OBSVTOIN 03-16 16:01 → 2RSO 03-18 04:29
PROVIDERS: ADMIT Internal Medicine; ATTEND Internal Medicine
DX: G30.9 Alzheimer's disease, unspecified (principal); F02.81 Dementia in other diseases classified elsewhere, unspecified severity, with behavioral disturbance; E87.8 Other disorders of electrolyte and fluid balance, not elsewhere classified; J44.9 Chronic obstructive pulmonary disease, unspecified; E87.6 Hypokalemia; F63.9 Impulse disorder, unspecified; R62.7 Adult failure to thrive; I10 Essential (primary) hypertension; E78.5 Hyperlipidemia, unspecified; E83.42 Hypomagnesemia; E83.39 Other disorders of phosphorus metabolism; Z87.891 Personal history of nicotine dependence